=== PATIENT | female | born 2000 | race Caucasian/White ===

== ENCOUNTER → 2023-12-01 | Outpatient (CLI) | payer OTHER, SELFPAY ==
--- NOTE | 2023-12-01 10:20 | MASS_PTH ---
PATIENT: AYLIN GUZMAN [facility] U#:[id number] AGE/SX: ROOM: RE12/01/[address]: Dr. Randy Paredes MD : 2000 BED: DIS: 12/01/2023 SPEC #: [id number] RECD: 12/01/23 15:12 STATUS: KEYANA WETZEL #: [id number] ELENI: 12/01/23 10:[address]: Randy Paredes DEPT: SURGICAL PATHOLOGY RECD BY: Kalyn Zaldivar Tissues: Skin of lip, NOS Procedures: Surgery Specimen Level IV HEADER OPERATION: Left excision lower lip mucous retention cyst PRE-OP DIAGNOSIS: Localized swelling, mass and lump, head TISSUE SUBMITTED: Lower lip mass MICROSCOPIC DIAGNOSIS Lower lip mass, biopsy: Granulation with associated mild chronic inflammation. Minor salivary gland tissue with associated mild chronic inflammation. No evidence of malignancy. See comment. AM/ 12/03/2023 COMMENT A ruptured mucous cyst is suspected. Clinical correlation is suggested. MICROSCOPIC DESCRIPTION Slides are reviewed. GROSS DESCRIPTION Received in fixative is one container labeled with the patient's name and designated Lower lip mass. The specimen consists of a single irregular fragment of guy tissue measuring 0.8 x 0.3 x 0.2cm. The specimen is totally submitted in one cassette. JOSUÉ/ 12/02/2023 TC:3 CPT:17891
== END | disposition home or self-care (01) ==
LOC: LABSPEC 15:48
PROVIDERS: PCP Otolaryngology; Referring Provider Otolaryngology; Visit Provider Otolaryngology
DX: R22.0 Localized swelling, mass and lump, head (principal)
CPT/HCPCS: 88305